=== PATIENT | female | born 1945 | race Caucasian/White ===

== ENCOUNTER 2018-10-22 19:56 | Emergency (ER) | payer OTHER ==
[~2018-10-22] VITALS: Ht 165.1 cm; Wt 63.5 kg
[2018-10-22] MEDS ORDERED: FLONASE 0.05%50 MCG NASAL (20:12)
[2018-10-22 20:58] LABS: HEMATOCRIT 41.1 % (37.0-47.0); MCH 31.2 pg (26.0-34.0); MCHC 34.1 g/dL (28.0-37.0); MCV 91.6 fL (80.0-100.0); RBC 4.49 mil/uL (4.20-5.00); RDW 12.3 % (10.5-14.5); WBC 4.7 thou/uL (4.0-11.0)
[2018-10-22 21:01] LABS: CALCIUM 9.2 mg/dL (8.5-10.1); CREATININE 1.1 mg/dL (0.6-1.0); POTASSIUM 3.8 mmol/L (3.5-5.1)
[2018-10-22 21:02] LABS: MAGNESIUM 2.1 mg/dL (1.8-2.4)
[2018-10-22 21:42] LABS: URINE BILIRUBIN NEGATIVE (Negative); URINE BLOOD NEGATIVE (Negative); URINE CLARITY CLEAR; URINE COLOR YELLOW; URINE GLUCOSE-RANDOM* NEGATIVE (Negative); URINE KETONES NEGATIVE (Negative); URINE LEUKOCYTES-REFLEX 3+ (Negative); URINE NITRITE-REFLEX NEGATIVE (Negative); URINE PROTEIN (DIPSTICK) NEGATIVE (Negative); URINE SPECIFIC GRAVITY <= 1.005 (1.005-1.035); URINE UROBILINOGEN 0.2 E.U./dl (0.2-1.0)
[2018-10-22 21:49] LABS: BACTERIA-REFLEX 1-9 Few /HPF (None Seen); CASTS None Seen /LPF (None Seen); CRYSTALS None Seen /LPF (None Seen); SQUAMOUS 0-3 Few /LPF (0-3); URINE RBC 0-2 Rare /HPF (0-2); URINE WBC-REFLEX 6-15 Few /HPF (0-5)
[2018-10-22] MEDS ORDERED: KEFLEX500 M1 PO (22:43)
[2018-10-22 22:53] VITALS: BP 147/78
== END 2018-10-22 22:54 | disposition home or self-care (01) ==
LOC: ER 19:56
PROVIDERS: Emergency Medicine
DX: N39.0 Urinary tract infection, site not specified (principal)